=== PATIENT | female | born 1955 | race Native Hawaiian/Other Pacific Islander ===

== ENCOUNTER 2022-08-31 08:27 | Outpatient (CLI) | payer OTHER | END 2022-08-31 22:04 | disposition home or self-care (01) | LOC: MRI 08:27 | PROVIDERS: ATTEND Student in an Organized Health Care Education/Training Program | DX: M47.816 Spondylosis without myelopathy or radiculopathy, lumbar region (principal); M54.16 Radiculopathy, lumbar region; M48.062 Spinal stenosis, lumbar region with neurogenic claudication ==

== ENCOUNTER 2022-10-18 12:00 | Outpatient (CLI) | payer OTHER | END 2022-10-18 20:24 | disposition home or self-care (01) | LOC: MRI 12:00 | PROVIDERS: ATTEND Student in an Organized Health Care Education/Training Program | DX: G89.4 Chronic pain syndrome (principal); M96.1 Postlaminectomy syndrome, not elsewhere classified ==

== ENCOUNTER 2022-11-22 12:30 | Outpatient (CLI) | payer OTHER ==
[2022-11-22 13:06] LABS: PLATELET COUNT 96 K/uL (152-353)
== END 2022-11-22 22:06 | disposition home or self-care (01) ==
LOC: LABW 12:30
PROVIDERS: ATTEND Physical Medicine & Rehabilitation Pain Medicine
DX: Z01.818 Encounter for other preprocedural examination (principal); M48.062 Spinal stenosis, lumbar region with neurogenic claudication; Z79.02 Long term (current) use of antithrombotics/antiplatelets; R23.3 Spontaneous ecchymoses
CPT/HCPCS: 36415; 80048; 85027; 85610

== ENCOUNTER 2022-12-07 10:59 | Outpatient (CLI) | payer OTHER ==
[2022-12-07 11:15] LABS: PLATELET COUNT 92 K/uL (152-353)
[2022-12-07 11:26] LABS: POTASSIUM 4.5 mmol/L (3.6-5.2)
== END 2022-12-07 19:51 | disposition home or self-care (01) ==
LOC: LABW 10:59
PROVIDERS: ATTEND Physical Medicine & Rehabilitation Pain Medicine
DX: Z01.818 Encounter for other preprocedural examination (principal); Z79.1 Long term (current) use of non-steroidal anti-inflammatories (NSAID); R23.3 Spontaneous ecchymoses
CPT/HCPCS: 36415; 80048; 85027; 85610

== ENCOUNTER 2023-01-04 13:11 | Observation (INO) | payer OTHER ==
[~2023-01-04] VITALS: Ht 162.6 cm; Wt 100.4 kg
[2023-01-04 13:29] VITALS: BP 104/37; TEMP 97.1
[2023-01-04 13:58] LABS: PLATELET COUNT 88 K/uL (152-353)
[2023-01-04 14:00] VITALS: BP 109/56
[2023-01-04 14:03] LABS: POTASSIUM 3.6 mmol/L (3.6-5.2)
[2023-01-04 15:00] VITALS: BP 126/54
[2023-01-04 16:00] VITALS: BP 147/70
[2023-01-04 17:00] VITALS: BP 141/87
[2023-01-04 18:12] VITALS: BP 141/50; TEMP 97.6; Ht 162.6 cm; Wt 100.4 kg
[2023-01-04] MEDS ORDERED: GABA300C2 PO (19:33)
[2023-01-04] MEDS ORDERED: TIZA4TAB5 PO (19:34)
[2023-01-04] MEDS ORDERED: MECLIZINE25 MG PO (19:35)
[2023-01-04] MEDS ORDERED: LOVA20TA PO (19:36)
[2023-01-04] MEDS ORDERED: ACET-689 PO (19:36)
[2023-01-04] MEDS ORDERED: DIOVAN HC1 PO (19:37)
[2023-01-04] MEDS ORDERED: OMEP20CA PO (19:37)
[2023-01-04] MEDS ORDERED: OXYB5TAB56 PO (19:37)
[2023-01-04] MEDS ORDERED: SERT100T PO (19:37)
[2023-01-05 04:00] VITALS: BP 108/57; TEMP 97.6
[2023-01-05 07:14] LABS: PLATELET COUNT 80 K/uL (152-353)
[2023-01-05 07:28] LABS: POTASSIUM 3.8 mmol/L (3.6-5.2)
[2023-01-05 08:00] VITALS: BP 120/72; TEMP 98
[2023-01-05 12:00] VITALS: BP 132/55; TEMP 98.3
== END 2023-01-05 14:40 | disposition home or self-care (01) ==
LOC: ED 13:11 → MED/SURG 16:50
PROVIDERS: ADMIT Family Medicine; ATTEND Family Medicine
DX: R42 Dizziness and giddiness (principal); R06.02 Shortness of breath; G89.29 Other chronic pain; R53.1 Weakness; I95.89 Other hypotension; E86.0 Dehydration; N17.8 Other acute kidney failure; E11.9 Type 2 diabetes mellitus without complications; R74.02 Elevation of levels of lactic acid dehydrogenase [LDH]; D72.828 Other elevated white blood cell count; R07.89 Other chest pain
CPT/HCPCS: 80053; 81000; 82948; 83036; 83605; 83735; 84100; 84484; 85027; 87077; 87086; 87088; 87186; 93005; 96360; 96361; 96374; 96375; 99221; 99284; G0378; J2405